=== PATIENT | female | born 1980 | race Caucasian/White ===

== ENCOUNTER 2017-07-24 19:43 | Emergency (ER) | payer BC ==
[~2017-07-24] VITALS: Ht 165.1 cm; Wt 124.7 kg
[~2017-07-24 19:43] MED LIST: ACETAMINOPHEN-1 EAC1 PO; AMOXICILLIN 50500 MG PO; FLEXERIL PO; HYDROCODONE-AP1 EAC6 PO; PEPCID20 MG PO; PERCOCET 5-3251 EACH PO; ZANAFLEX4 MG PO
[2017-07-24] MEDS ORDERED: CLONIDINE0.1 (19:55)
[2017-07-24] MEDS ORDERED: RAMIPRIL10 MG (19:55)
[2017-07-24] MEDS ORDERED: BENTYL 10 MG CA10 MG PO (19:56)
[2017-07-24 21:09] LABS: URINE BLOOD 1+ (Negative); URINE CLARITY CLEAR; URINE COLOR YELLOW; URINE GLUCOSE-RANDOM NEGATIVE (Negative); URINE KETONES TRACE (Negative); URINE LEUKOCYTES-REFLEX NEGATIVE (Negative); URINE NITRITE-REFLEX NEGATIVE (Negative); URINE PROTEIN TRACE (Negative); URINE SPECIFIC GRAVITY >= 1.030 (1.005-1.030); URINE UROBILINOGEN 0.2 E.U./dl (0.2-1.0)
[2017-07-24 21:12] LABS: ICTOTEST (BILI CONFIRMATORY) Negative (Negative); URINE BILIRUBIN 1+ (Negative)
[2017-07-24 21:16] LABS: HEMATOCRIT 44.8 % (37.0-47.0); HEMOGLOBIN 15.1 gm/dL (12.0-15.0); MCH 29.5 pg (26.0-34.0); MCHC 33.8 g/dL (28.0-37.0); MCV 87.3 fL (80.0-100.0); MPV 8.1 fl. (7.2-11.1); NUCLEATED RBCS 0 /100WBC; PLATELET COUNT* 476 thou/uL (150-400); RBC 5.13 mil/uL (4.20-5.00); RDW-CV 14.7 % (10.5-14.5); WBC 20.4 thou/uL (4.0-11.0)
[2017-07-24 21:21] LABS: MUCUS >6 Heavy strn/LPF (None Seen); SQUAMOUS >10 Many /LPF (0-3)
[2017-07-24 21:24] LABS: CALCIUM 9.5 mg/dL (8.5-10.1); CREATININE 0.8 mg/dL (0.6-1.3); POTASSIUM 3.7 mmol/L (3.5-5.1)
[2017-07-24 21:25] LABS: BACTERIA-REFLEX 1-9 Few /HPF (None Seen); CASTS None Seen /LPF (None Seen); CRYSTALS None Seen /LPF (None Seen); URINE RBC 0-2 Rare /HPF (0-2); URINE WBC-REFLEX 0-5 Rare /HPF (0-5)
[2017-07-24 21:33] LABS: ALBUMIN 3.9 g/dL (3.4-5.0); TOTAL BILIRUBIN 0.6 mg/dL (<0.1-1.0); TOTAL PROTEIN 8.7 g/dL (6.4-8.2)
[2017-07-24 21:40] LABS: ABSOLUTE EOSINOPHILS 0.2 thou/uL (0.0-0.7); ABSOLUTE LYMPHOCYTES 3.9 thou/uL (0.8-5.3); ABSOLUTE NEUTROPHILS 15.3 thou/uL (1.6-8.1)
[2017-07-24 21:42] LABS: PLATELET ESTIMATE INCREASED
[2017-07-24] MEDS ORDERED: CIPRO500 MG PO (22:30)
[2017-07-24] MEDS ORDERED: ZOFRAN ODT4 MG PO (22:30)
[2017-07-24] MEDS ORDERED: NORCO 5-325 TA1 EACH PO (22:30)
[2017-07-24 22:49] VITALS: BP 159/96
== END 2017-07-24 22:49 | disposition home or self-care (01) ==
LOC: M.ERS 19:43
PROVIDERS: Emergency Medicine Emergency Medical Services
DX: K52.9 Noninfective gastroenteritis and colitis, unspecified (principal); I10 Essential (primary) hypertension; F17.210 Nicotine dependence, cigarettes, uncomplicated; Z91.040 Latex allergy status; Z88.0 Allergy status to penicillin; Z88.5 Allergy status to narcotic agent

== ENCOUNTER 2018-09-22 11:24 | Inpatient (IN) | payer BC ==
[~2018-09-22] VITALS: Ht 165.1 cm; Wt 130.2 kg
--- NOTE | ~2018-09-22 | CON ---
[address] [address] CONSULTATION Name: BRIAN BHATIA Room: [address] IN .R.#: [id number] Admission: 09/22/18 Attend Phys: Fermin Moreau MD Discharge: Date of : 82 Report #: [id number] THIS REPORT FOR: //name// CC: Fermin Benitez HISTORY OF PRESENT ILLNESS: This is a pleasant 38-year-old female with no significant medical problems, who is presenting for evaluation of abdominal pain, nausea and vomiting. The patient reports the symptoms began about 3 days back and started with epigastric abdominal pain. The patient reports the pain is localized to the epigastrium, nonradiating and associated with nausea and vomiting. The patient reports she vomited only clear or bilious emesis and denies any hematemesis. The patient reports no particular aggravating or alleviating factors apart from pain medication. She denies similar episodes in the past. The patient reports she has not had any diarrhea and her last bowel movement was more than 24 hours back. The patient does report passing gas intermittently. She denies any hematochezia or recent weight loss. The patient has never had an EGD or colonoscopy performed in the past. PAST MEDICAL HISTORY: Significant for hypertension. PAST SURGICAL HISTORY: Nonsignificant. SOCIAL HISTORY: The patient does smoke every day and has been smoking a pack a day for the last several years. Denies significant alcohol or recreational drug use. FAMILY HISTORY: There is no family history of colorectal, gastric or other related GI malignancies. REVIEW OF SYSTEMS: A comprehensive 10-point review of systems is negative, except for what was mentioned in the HPI. PHYSICAL EXAMINATION: VITAL SIGNS: Temperature 36.7, pulse rate 76, respirations 18, blood pressure 121/86 and pulse ox 98%. GENERAL: The patient is alert, awake and oriented x 3. HEENT: Pupils are equal, round and reactive to light and accommodation. Mucous membranes are moist. There is no congestion. LUNGS: Clear to auscultation bilaterally. CARDIOVASCULAR EXAMINATION: Rate and rhythm regular; S1, S2 present. ABDOMEN: Soft, mild tenderness in the epigastric region. No guarding or rigidity. EXTREMITIES: Warm and well perfused. There is no edema. LABORATORY DATA: Hemoglobin 12.7, hematocrit 37.9, platelet count 348,000 and WBC count 13.7. Sodium 140, potassium 4.1, chloride 105, bicarbonate 27, BUN [address] [place] [address] CONSULTATION Name: BRIAN BHATIA Room: [address]#: [id number] Admission: 09/22/18 Attend Phys: Fermin Moreau MD Discharge: Date of : 82 Report #: [id number] and creatinine 0.7. Total bilirubin 0.4, AST 18, ALT 40 and alkaline phosphatase 55. Lipase 64. Urine positive for blood and few bacteria. IMAGING: Abdomen and pelvis CT demonstrates diffuse fatty infiltration of the liver, dilation of the proximal mid small bowel, suggesting small-bowel obstruction. Ileitis or enteritis is not excluded as an etiology. Possible colonic wall thickening or colitis could not be excluded. ASSESSMENT AND PLAN: Pleasant 38-year-old female presenting with epigastric abdominal pain, nausea and vomiting. The CT scan of abdomen shows partial small-bowel obstruction with possible enteritis and thickening of the colon. We will continue to manage the patient conservatively for now. Once she is able to tolerate p.o. diet, the plan will be to prep her for possible colonoscopy to evaluate the colonic thickening. Thank you for this consult. By: [id number] Simeon MD /nt
[~2018-09-22 11:24] MED LIST changes: +BENTYL 10 MG CA10 MG PO; +CIPRO500 MG PO; +CLONIDINE0.1; +NORCO 5-325 TA1 EACH PO; +RAMIPRIL10 MG; +ZOFRAN ODT4 MG PO
[2018-09-22 11:49] VITALS: BP 167/121
[2018-09-22 12:26] LABS: HEMATOCRIT 44.3 % (37.0-47.0); HEMOGLOBIN 14.9 gm/dL (12.0-15.0); MCH 28.7 pg (26.0-34.0); MCHC 33.6 g/dL (28.0-37.0); MCV 85.5 fL (80.0-100.0); MPV 8.1 fl. (7.2-11.1); NUCLEATED RBCS 0 /100WBC; PLATELET COUNT* 407 thou/uL (150-400); RBC 5.19 mil/uL (4.20-5.00); RDW-CV 14.4 % (10.5-14.5)
[2018-09-22 12:40] LABS: ALBUMIN 3.7 g/dL (3.4-5.0); CALCIUM 9.3 mg/dL (8.5-10.1); CREATININE 0.8 mg/dL (0.6-1.3); POTASSIUM 4.1 mmol/L (3.5-5.1); TOTAL BILIRUBIN 0.4 mg/dL (<0.1-1.0); TOTAL PROTEIN 8.2 g/dL (6.4-8.2)
[2018-09-22 13:00] LABS: ABSOLUTE BASOPHILS 0.2 thou/uL (0.0-0.2); ABSOLUTE LYMPHOCYTES 0.3 thou/uL (0.8-5.3); ABSOLUTE NEUTROPHILS 15.5 thou/uL (1.6-8.1); PLATELET ESTIMATE ADEQUATE
[2018-09-22 14:19] LABS: URINE BILIRUBIN NEGATIVE (Negative); URINE BLOOD 3+ (Negative); URINE CLARITY CLEAR; URINE COLOR YELLOW; URINE GLUCOSE-RANDOM NEGATIVE (Negative); URINE KETONES NEGATIVE (Negative); URINE LEUKOCYTES-REFLEX NEGATIVE (Negative); URINE NITRITE-REFLEX NEGATIVE (Negative); URINE PROTEIN NEGATIVE (Negative); URINE SPECIFIC GRAVITY <= 1.005 (1.005-1.030); URINE UROBILINOGEN 0.2 E.U./dl (0.2-1.0)
[2018-09-22 14:24] LABS: SQUAMOUS 4-10 Moderate /LPF (0-3); URINE RBC 0-2 Rare /HPF (0-2); URINE WBC-REFLEX 0-5 Rare /HPF (0-5)
[2018-09-22 14:25] LABS: BACTERIA-REFLEX 1-9 Few /HPF (None Seen); CASTS None Seen /LPF (None Seen); CRYSTALS None Seen /LPF (None Seen); MUCUS None Seen strn/LPF (None Seen)
[2018-09-22 15:05] VITALS: BP 165/98
--- NOTE | 2018-09-22 17:23 | NUR ---
PATIENT ARRIVED TO UNIT AT 1520. ALERT AND ORIENTED X4. ASSESSMENT COMPLETED AND CHARTED. VSS ON ROOM AIR. NO COMPLAINTS OF NAUSEA, OR SOA. PAIN MANAGED WITH IV MEDICATION. FLUIDS AND ANTIBIOTICS INFUSED ORDERED. NPO AT THIS TIME. SURGERY CONSULTED AND SAW PATIENT IN THE ED. GI CONSULTED. PATIENT UP AD KWAKU AND AMBULATED STEADILY, INSTRUCTED TO USE JOSE CARLOS LIGHT FOR NEEDS. CALL IGHT PLACED IN REACH. HOURLY ROUNDS COMPLETED WHILE ON UNIT. NURSING WILL CONTINUE TO MONITOR.
[2018-09-22 17:32] VITALS: BP 138/64
[2018-09-22 20:30] VITALS: BP 132/77
[2018-09-23 04:07] LABS: HEMATOCRIT 37.9 % (37.0-47.0); MCH 28.9 pg (26.0-34.0); MCHC 33.5 g/dL (28.0-37.0); MCV 86.2 fL (80.0-100.0); MPV 8.1 fl. (7.2-11.1); RBC 4.39 mil/uL (4.20-5.00); RDW-CV 14.3 % (10.5-14.5); WBC 13.7 thou/uL (4.0-11.0)
[2018-09-23 04:12] LABS: HEMOGLOBIN 12.7 gm/dL (12.0-15.0)
[2018-09-23 04:21] LABS: CALCIUM 8.4 mg/dL (8.5-10.1); CREATININE 0.7 mg/dL (0.6-1.3); MAGNESIUM 1.9 mg/dL (1.8-2.4); PHOSPHORUS* 2.5 mg/dL (2.5-4.9); POTASSIUM 4.1 mmol/L (3.5-5.1); TOTAL BILIRUBIN 0.4 mg/dL (<0.1-1.0); TOTAL PROTEIN 6.8 g/dL (6.4-8.2)
--- NOTE | 2018-09-23 04:42 | NUR ---
PATIENT HAS REMAINED ALERT AND ORIENTED X 4 THROUGHOUT THE SHIFT AND RESTING QUIETLY ON HOURLY ROUNDS. DIFFICULT PAIN AND NAUSEA MANAGEMENT FIRST OF SHIFT. THINGS SOMEWHAT IMPROVED AFTER 0030 AND HAS BEEN ABLE TO REST. DID HAVE TWO SMALL UNMEASURED EMESIS PRIOR TO 0 WELL. IVF'S AND ANTIBIOTICS PER ORDER. VITAL SIGNS STABLE. NPO EXCEPT ICE CHIPS. CONTINUE TO MONITOR.
[2018-09-23 07:40] VITALS: BP 121/86
--- NOTE | 2018-09-23 17:52 | NUR ---
ASSUMED CARE OF PATIENT AT APPROX 0730. ALERT AND ORIENTED X4. ASSESSMENT COMPLETED AND CHARTED. VSS ON ROOM AIR. PATIENTS NAUSEA AND ABDOMINAL PAIN HAVE BEEN MANAGED WITH IV MEDICATIONS. FLUIDS AND ANTIBIOTICS INFUSED ORDERED. PATIENTS DIET ADVANCED FROM NPO TO CLEAR LIQUIDS, PATIENT NOT TOLERATING WELL, VOMITED AFTER HAVING SOME CHICKEN BROTH, GAVE NAUSEA MEDICATION AND WILL REASSESS HOW SHE TOLERATES TRYING MORE LIQUIDS. PATIENT UP AD KWAKU IN THE ROOM. INSTRUCTED TO USE JOSE CARLOS LIGHT FOR NEEDS AND USES APPROPRIATELY. HOURLY ROUNDS COMPLETED, CALL LIGHT WITHIN REACH, NURSING WILL CONTINUE TO MONITOR.
[2018-09-23 18:13] VITALS: BP 146/56
--- NOTE | 2018-09-23 18:32 | NUR ---
GI DR RODRIGUEZ SAW PATIENT AT APPROX 1100 AND SPOKE WITH ME ON HIS WAY OFF UNIT, STATED THAT HE WOULD ADVANCE PATIENTS DIET TO CLEAR LIQUIDS AND SEE HOW SHE TOLERATES THIS. HE STATED THAT HE WOULD POSSIBLY DO A COLONOSCOPY TOMORROW. NO NOTES OR ORDERS ADDED BY HIM OF THE TIME OF THIS NOTE.
[2018-09-23 20:00] VITALS: BP 143/81
--- NOTE | 2018-09-24 04:38 | NUR ---
PATIENT HAS REMAINED ALERT AND ORIENTED X 4 THROUGHOUT THE SHIFT AND RESTING IMPROVED TONIGHT ON HOURLY ROUNDS. FEW BITES OF JELLO AT HS WITHOUT EMESIS. MINAMAL NAUSEA WITH REGLAN AND ZOFRAN PROVIDED X 1 EACH OF THE WRITING AND PAIN MEDICATION X 2 TO GOOD EFFECT. IVF'S AND ANTIBIOTICS PER ORDER. VITAL SIGNS STABLE. CONTINUE TO MONITOR.
[2018-09-24 08:10] VITALS: BP 148/83
[2018-09-24 16:33] VITALS: BP 148/83
[2018-09-24 16:49] VITALS: BP 159/72
--- NOTE | 2018-09-24 17:01 | NUR ---
PT REMAINED ALERT AND ORIENTED. PT SCHEDULED FOR COLONOSCOPY TOMORROW AT 0830. CONSENT SIGNED. BOWEL PREP GIVEN. CLR LIWUIDS, NPO AFTER MIDNIGHT. PT UP AD KWAKU. PT C/O PAIN, MEDS GIVEN ORDERED. NAUSEA MEDS GIVEN ORDERED. FALL RISK PRECAUTIONS IN PLACE. KARYRY ROUDNING COMPLETED. WILL CONTINUE TO MONITOR.
[2018-09-24 20:45] VITALS: BP 155/75
[2018-09-25 04:03] LABS: HEMATOCRIT 36.8 % (37.0-47.0); HEMOGLOBIN 12.4 gm/dL (12.0-15.0); MCHC 33.6 g/dL (28.0-37.0); MCV 86.3 fL (80.0-100.0); MPV 8.1 fl. (7.2-11.1); RBC 4.27 mil/uL (4.20-5.00); RDW-CV 13.9 % (10.5-14.5); WBC 11.9 thou/uL (4.0-11.0)
[2018-09-25 04:20] LABS: ALBUMIN 3.3 g/dL (3.4-5.0); CALCIUM 8.2 mg/dL (8.5-10.1); CREATININE 0.8 mg/dL (0.6-1.3); POTASSIUM 3.4 mmol/L (3.5-5.1); TOTAL BILIRUBIN 0.5 mg/dL (<0.1-1.0); TOTAL PROTEIN 7.1 g/dL (6.4-8.2)
[2018-09-25 06:40] VITALS: BP 148/83
[2018-09-25 07:28] VITALS: BP 154/87
--- NOTE | 2018-09-25 07:43 | NUR ---
PATIENT HAS SLEPT WELL THROUGHOUT THE NIGHT. VSS ON RA. MEDICATIONS GIVEN ORDERED AND CHARTED. PATIENT HAS REMAINED NPO SINCE MIDNIGHT D/T SCHEDULED EGD/COLONOSCOPY. IV IN LEFT FOREARM-NS @ 100ML/HR. PATIENT INSTRUCTED TO USE CALL LIGHT WHEN NEEDING ASSISTANCE. HOURLY ROUNDS MADE. WILL CONTINUE WITH PLAN OF CARE AND NURSING TO MONITOR.
[2018-09-25 07:56] VITALS: BP 148/83
[2018-09-25 11:34] LABS: CALCIUM 8.3 mg/dL (8.5-10.1); CREATININE 0.7 mg/dL (0.6-1.3); POTASSIUM 3.5 mmol/L (3.5-5.1)
[2018-09-25] MEDS ORDERED: ZOFRAN ODT4 MG PO (14:56)
[2018-09-25] MEDS ORDERED: BENTYL 10 MG CA10 MG PO (14:56)
[2018-09-25] MEDS ORDERED: CIPRO500 MG PO (14:56)
[2018-09-25] MEDS ORDERED: METRONIDAZOLE500 M4 PO (14:56)
[2018-09-25 15:45] VITALS: BP 148/83
[2018-09-25 16:50] VITALS: BP 148/83
[2018-09-25 17:26] VITALS: BP 148/83
--- NOTE | 2018-09-25 17:27 | NUR ---
PT GIVEN DISCHARGE INFORMATION, CARE NOTES, AND PRESCRIPTIONS. IV REMOVED. PT DENIED ANY QUESTIONS. BELONINGS GATHERED. PT LEFT AMBULATORY WITH NURSING STAFF TO HOME WITH SPOUSE. FALL RISK PRECAUTIONS IN PLACE. HOURLY ROUNDING COMPLETED. WILL CONTINUE TO MONITOR.
--- NOTE | 2018-09-26 15:06 | PATH ---
[facility] [address] [facility] [place] [address] PATHOLOGY RPT PROCEDURE Name: SAIMA BHATIA Room: [address] IN M.R.#: [id number] Admission: 09/22/18 Date of : 82 Discharge: 09/25/18 Report #: [id number] Path Case #: [id number] [facility] Accession Number: [id number] . 01 Material submitted: . GASTRIC BIOPSY MILD GASTRITIS . 01 Clinical history: . Mild gastritis . 02 Diagnosis: Gastric biopsy: - Mild chronic gastritis suggesting reactive gastropathy (chemical gastritis), negative for Helicobacter pylori organisms and dysplasia. (HUSSAIN:kareen; 09/26/2018) MBR/09/26/2018 . 02 Comment: Special stain: H. pylori immuno (HUSSAIN:kareen; 09/26/2018) . 02 Electronically signed: . Nitin Quezada MD, Pathologist NPI- [id number] . 01 Gross description: . The specimen is received in formalin, labeled "Elian, Saima, gastric biopsy, mild gastritis", are three mirza, mucosal segments measuring 0.2 cm, 0.3 cm and a 0.5 cm in greatest dimension, entirely submitted in A1. (SWS; 09/25/2018) SHS/SHS . 02 Pathologist provided ICD-10: K29.50 . 02 CPT . 671942, S69590 Specimen Comment: A courtesy copy of this report has been sent to Specimen Comment: [phone], , . Specimen Comment: Report sent to ,DR MCKEON / DR GUTIERREZ Performed at: [address], [place] [id number] MD Tino Wolff MD Phone: [phone] Performed at: [address] [address] [address] Suero, [place], [place] [id number] MD Nitin Quezada MD Phone: [phone]
== END 2018-09-25 17:28 | disposition home or self-care (01) | DRG 392 ==
LOC: M.ERS 11:24 → M.ORTHSURG 14:07 → M.TBA-ER 14:07 → M.ORTHSURG 15:17
PROVIDERS: Family Medicine; Physician Assistant
PROC: 0DJD8ZZ Inspection of Lower Intestinal Tract, Via Natural or Artificial Opening Endoscopic (ICD-10-PCS; principal; 2018-09-25)
PROC: 0DB68ZX Excision of Stomach, Via Natural or Artificial Opening Endoscopic, Diagnostic (ICD-10-PCS; principal; 2018-09-25)
DX: K57.30 Diverticulosis of large intestine without perforation or abscess without bleeding (principal); K56.699 Other intestinal obstruction unspecified as to partial versus complete obstruction; K58.9 Irritable bowel syndrome, unspecified; E87.6 Hypokalemia; F41.9 Anxiety disorder, unspecified; K44.9 Diaphragmatic hernia without obstruction or gangrene; K31.89 Other diseases of stomach and duodenum; F17.210 Nicotine dependence, cigarettes, uncomplicated; D72.829 Elevated white blood cell count, unspecified; K31.9 Disease of stomach and duodenum, unspecified; K64.8 Other hemorrhoids; G89.29 Other chronic pain; M54.5 Low back pain; Z88.0 Allergy status to penicillin; Z88.8 Allergy status to other drugs, medicaments and biological substances; Z91.040 Latex allergy status

== ENCOUNTER 2020-12-26 21:05 | Emergency (ER) | payer OTHER ==
[~2020-12-26] VITALS: Ht 165.1 cm; Wt 116.6 kg
[~2020-12-26 21:05] MED LIST changes: +METRONIDAZOLE500 M4 PO
[2020-12-26] MEDS ORDERED: PROTONIX40 M2 PO (21:11)
[2020-12-26] MEDS ORDERED: EXCEDRIN CAPLE1 EACH PO (21:12)
[2020-12-26] MEDS ORDERED: TRAMADOL 50 MG50 MG PO (21:12)
[2020-12-26] MEDS ORDERED: ALPRAZOLAM ER1 MG PO (21:12)
[2020-12-26 22:15] LABS: ABSOLUTE BASOPHILS 0.1 thou/uL (0.0-0.2); ABSOLUTE EOSINOPHILS 0.1 thou/uL (0.0-0.7); ABSOLUTE LYMPHOCYTES 4.4 thou/uL (0.8-5.3); ABSOLUTE MONOCYTES 0.8 thou/uL (0.0-1.2); ABSOLUTE NEUTROPHILS 6.8 thou/uL (1.6-8.1); BASOPHILS 1.1 %; EOSINOPHILS 1.2 %; HEMATOCRIT 37.1 % (37.0-47.0); HEMOGLOBIN 12.5 gm/dL (12.0-15.0); LYMPHOCYTES 36.1 %; MCH 29.6 pg (26.0-34.0); MCHC 33.6 g/dL (28.0-37.0); MONOCYTES 6.3 %; MPV 8.1 fl. (7.2-11.1); NUCLEATED RBCS 0 /100WBC; PLATELET COUNT* 344 thou/uL (150-400); POLYS 55.3 %; RBC 4.22 mil/uL (4.20-5.00); RDW-CV 14.5 % (10.5-14.5); WBC 12.2 thou/uL (4.0-11.0)
[2020-12-26 22:20] LABS: CALCIUM 8.7 mg/dL (8.5-10.1); CREATININE 0.9 mg/dL (0.6-1.3); POTASSIUM 3.9 mmol/L (3.5-5.1)
[2020-12-26 22:24] LABS: ALBUMIN 3.6 g/dL (3.4-5.0); TOTAL BILIRUBIN 0.1 mg/dL (<0.1-1.0); TOTAL PROTEIN 7.4 g/dL (6.4-8.2)
[2020-12-27] MEDS ORDERED: NORFLEX100 MG PO (01:17)
[2020-12-27] MEDS ORDERED: MEDROLDOSEPACK PO (01:17)
[2020-12-27 01:29] VITALS: BP 155/68
--- NOTE | 2020-12-27 11:49 | EKG ---
[place] [address] ELECTROCARDIOGRAM REPORT Name: BRIAN BHATIA Room: [facility]#: [id number] Admission: 12/26/20 Attend Phys: Discharge: 12/27/20 Date of : 82 Date of Service: 12/26/202107 Report #: [id number] THIS REPORT FOR: //name// [facility] ED Test Date: 2020-12-26 Test Time: 21:08:41 Pat Name: BRIAN BHATIA Department: Room: Gender: Bi Tester: [facility] : 1980 Requested By: Rachel Fox Order Number: [id number] MD: Jesus Kruse Measurements Intervals [place] Rate: 77 P: 51 OK: 155 QRS: -4 QRSD: 105 T: 32 QT: 399 QTc: 452 Interpretive Statements Sinus rhythm RSR' in V1 or V2, probably normal variant Artifact in lead(s) I,II,III,aVR,aVL,aVF Compared to ECG 04/29/2016 18:02:57 RSR' in V1 or V2 now present Electronically Signed On 12-27-2020 11:49:00 CDT by Jesus Kruse [email or web address] <ELECTRONICALLY SIGNED> By: Jesus Kruse MD, FACC 12/27/20 1149 07 07 Jesus Kruse MD, FAC /EPI
== END 2020-12-27 01:29 | disposition home or self-care (01) ==
LOC: M.ERS 21:05
PROVIDERS: Personal Emergency Response Attendant
DX: R07.89 Other chest pain (principal); D72.829 Elevated white blood cell count, unspecified; I10 Essential (primary) hypertension; G89.29 Other chronic pain; F17.210 Nicotine dependence, cigarettes, uncomplicated; Z91.040 Latex allergy status; Z88.0 Allergy status to penicillin; Z88.6 Allergy status to analgesic agent

== ENCOUNTER 2021-08-25 07:41 | Emergency (ER) | payer BC ==
[~2021-08-25] VITALS: Ht 165.1 cm; Wt 112.5 kg
[~2021-08-25 07:41] MED LIST changes: +ALPRAZOLAM ER1 MG PO; +EXCEDRIN CAPLE1 EACH PO; +MEDROLDOSEPACK PO; +NORFLEX100 MG PO; +PROTONIX40 M2 PO; +TRAMADOL 50 MG50 MG PO
[2021-08-25 08:14] LABS: ABSOLUTE BASOPHILS 0.1 thou/uL (0.0-0.2); ABSOLUTE EOSINOPHILS 0.2 thou/uL (0.0-0.7); ABSOLUTE MONOCYTES 0.6 thou/uL (0.0-1.2); BASOPHILS 0.5 %; EOSINOPHILS 1.5 %; HEMATOCRIT 41.9 % (37.0-47.0); LYMPHOCYTES 25.7 %; MCH 30.5 pg (26.0-34.0); MCHC 33.4 g/dL (28.0-37.0); MCV 91.1 fL (80.0-100.0); MONOCYTES 5.2 %; MPV 7.6 fl. (7.2-11.1); NUCLEATED RBCS 0 /100WBC; PLATELET COUNT* 403 thou/uL (150-400); POLYS 67.1 %; RBC 4.59 mil/uL (4.20-5.00); RDW-CV 13.9 % (10.5-14.5); WBC 11.9 thou/uL (4.0-11.0)
[2021-08-25 09:36] LABS: CALCIUM 9.7 mg/dL (8.5-10.1); CREATININE 0.9 mg/dL (0.6-1.3)
[2021-08-25 09:47] LABS: ALBUMIN 3.9 g/dL (3.4-5.0); TOTAL BILIRUBIN 0.3 mg/dL (<0.1-1.0); TOTAL PROTEIN 7.9 g/dL (6.4-8.2)
[2021-08-25 09:58] VITALS: BP 166/97
--- NOTE | 2021-08-25 10:11 | EKG ---
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[employer] : 1980 Requested By: Chava Hawkins Order Number: [id number] MD: Hal Peralta Measurements Intervals [place] Rate: 65 P: 20 NM: 140 QRS: 1 QRSD: 101 T: 27 QT: 397 QTc: 413 Interpretive Statements Sinus rhythm Abnormal R-wave progression, late transition Artifact in lead(s) I,II,III,aVR,aVL,aVF,V1,V2,V3,V4,V5,V6 Compared to ECG 12/26/2020 21:08:41 no change Electronically Signed On 08-25-2021 10:11:08 BASKET MACHINE OPERATOR by Hal Peralta [email or web address] <ELECTRONICALLY SIGNED> By: Hal Peralta MD, FAC 08/25/21 1011 0745 0745 Hal Peralta MD, [facility] /EPI
[2021-08-25 10:23] LABS: MAGNESIUM 2.3 mg/dL (1.8-2.4)
== END 2021-08-25 09:58 | disposition home or self-care (01) ==
LOC: M.ERS 07:41
PROVIDERS: Family Medicine
DX: R00.2 Palpitations (principal); I10 Essential (primary) hypertension; K21.9 Gastro-esophageal reflux disease without esophagitis; F17.210 Nicotine dependence, cigarettes, uncomplicated; Z90.49 Acquired absence of other specified parts of digestive tract; Z98.890 Other specified postprocedural states; Z79.899 Other long term (current) drug therapy; Z79.82 Long term (current) use of aspirin; Z91.040 Latex allergy status; Z88.8 Allergy status to other drugs, medicaments and biological substances; Z88.0 Allergy status to penicillin